=== PATIENT | female | born 1990 | race Caucasian/White ===

== ENCOUNTER 2023-06-28 17:48 | Emergency (ER) | payer OTHER, MEDICAID, SELFPAY ==
[2023-06-28 18:08] VITALS: BP 176/121; PULSE 116; RESP 18; TEMP 36.8; O2SAT 95; BMI 31.1
--- NOTE | 2023-06-28 20:26 | PC.NURSE ---
Patient told registration at 2006 that they were going to another hospital.
== END 2023-06-28 20:07 | disposition left against medical advice (07) ==
PROVIDERS: Emergency Provider Emergency Medicine
CPT/HCPCS: 99281

== ENCOUNTER 2023-08-24 23:15 | Emergency (ER) | payer OTHER, MEDICAID, SELFPAY ==
[2023-08-24 23:22] VITALS: PULSE 155; RESP 26; TEMP 36.3; O2SAT 98; BMI 31.8
--- NOTE | 2023-08-24 23:27 | DI.RAD.S_ITS ---
PROCEDURE: XR CHEST 1V INDICATIONS: Chest pain TECHNIQUE: One view of the chest was acquired. COMPARISON: None. FINDINGS: Surgical changes and devices: None. Lungs and pleura: Slightly diminished lung volumes. Streaky bibasilar opacities more pronounced on the left likely representing atelectasis. No dense consolidation. No pneumothorax or pleural effusion. Mediastinum: Mediastinal contours appear normal. Heart size is normal. Bones and chest wall: No suspicious bony lesions. Overlying soft tissues appear unremarkable. IMPRESSION: Decreased lung volumes with findings compatible with atelectasis of the bilateral lung bases. No dense consolidation. No acute cardiopulmonary abnormalities. Dictated by: Cuauhtemoc Alba M.D. on 08/25/2023 at 0:11 Approved by: Cuauhtemoc Alba M.D. on 08/25/2023 at 0:12
--- NOTE | 2023-08-24 23:28 | ED_ITS ---
HPI - Chest Pain General Chief Complaint: Chest Pain Stated Complaint: needs help Time Seen by Provider: 08/24/23 23:20 Source: patient Mode of arrival: Wheelchair History of Present Illness HPI narrative: 33-year-old female with history of amphetamine abuse presents for chest pain. History is limited as patient is screaming, thrashing on the bed, screaming ?help me! I need help! Unable to redirect patient or calm patient down. Patient then began to scream to myself and nursing staff that ?you all are a bunch of fucking morons when vitals are attempted. Related Data Home Medications Medication Instructions Recorded Confirmed acetaminophen 325 mg rectal ##0 05/07/17 04/08/21 suppository (Acephen) ibuprofen 200 mg tablet ##0 05/07/17 04/08/21 Allergies Allergy/AdvReac Type Severity Reaction Status Date / Time methocarbamol [METHOCARBAMOL] Allergy Unknown NUMB LIPS Verified 06/28/23 18:08 AND TONGUE Penicillins [PENICILLINS] Allergy Unknown Verified 06/28/23 18:08 Review of Systems Review of Systems Narrative: see HPI Patient History Social History Smoking Status: Current every day smoker Smoking Status: Current every day smoker tobacco type: cigarettes Substance Use Type: marijuana, IV drugs and methamphetamine Exam Initial Vital Signs Initial Vital Signs: Vital Signs Temperature 97.3 F L 08/24/23 23:22 Pulse Rate 155 H 08/24/23 23:22 Respiratory Rate 26 H 08/24/23 23:22 Pulse Oximetry 98 08/24/23 23:22 Oxygen Delivery Method Room Air 08/24/23 23:22 Const: Agitated, screaming, uncooperative Cardiac: Tachycardia, regular rhythm RESP: unlabored, screaming loudly at the top of her lungs Skin: Warm, Dry, intact, no rashes Neuro: CN II-XII grossly intact, moves all extremities Course Orders Ordered: Discontinued Medications Diphenhydramine HCl (Diphenhydramine 50 Mg/Ml Vial) 50 mg IM NOW ONE Stop: 08/24/23 23:44 Last Admin: 08/24/23 23:55 Dose: 50 mg Documented By: AB Droperidol (Droperidol 5 Mg/2 Ml Vial) 5 mg IM NOW ONE Stop: 08/24/23 23:23 Last Admin: 08/24/23 23:30 Dose: 5 mg Documented By: Sodium Chloride (Normal Saline 0.9%) 1,000 mls @ 1,000 mls/hr IV BOLUS ONE Stop: 08/25/23 01:06 Last Infusion: 08/25/23 01:09 Dose: Infused Documented By: Admin: 08/25/23 00:29 Dose: 1,000 mls/hr Documented By: Lorazepam (Lorazepam 2 Mg/Ml Inj) 2 mg IM NOW ONE Stop: 08/24/23 23:22 Last Admin: 08/24/23 23:30 Dose: 2 mg Documented By: Lorazepam (Lorazepam 2 Mg/Ml Inj) 2 mg IM NOW ONE Stop: 08/24/23 23:44 Last Admin: 08/24/23 23:55 Dose: 2 mg Documented By: Vital Signs Vital signs: Vital Signs - 8 hr 08/24/23 23:22 08/24/23 23:50 08/25/23 00:00 Temperature 97.3 F L Pulse Rate 155 H 144 H Respiratory Rate 26 H 29 H Blood Pressure 129/66 Pulse Oximetry 98 100 Oxygen Delivery Method Room Air Room Air 08/25/23 00:00 08/25/23 00:30 08/25/23 00:30 Temperature Pulse Rate 126 H 117 H Respiratory Rate 17 14 Blood Pressure 123/63 Pulse Oximetry 100 Oxygen Delivery Method 08/25/23 01:00 08/25/23 01:00 08/25/23 01:30 Temperature Pulse Rate 106 H Respiratory Rate 14 Blood Pressure 112/55 L 122/77 Pulse Oximetry 100 Oxygen Delivery Method 08/25/23 01:30 08/25/23 02:00 08/25/23 02:00 Temperature Pulse Rate 98 H 97 H Respiratory Rate 11 L 14 Blood Pressure 114/62 Pulse Oximetry 100 Oxygen Delivery Method Room Air 08/25/23 02:30 08/25/23 02:30 08/25/23 03:00 Temperature Pulse Rate 94 H 96 H Respiratory Rate 12 14 Blood Pressure 122/77 Pulse Oximetry 98 100 Oxygen Delivery Method 08/25/23 03:00 08/25/23 03:30 08/25/23 03:30 Temperature Pulse Rate 91 H Respiratory Rate 14 Blood Pressure 116/73 119/71 Pulse Oximetry 100 Oxygen Delivery Method 08/25/23 04:00 08/25/23 04:00 08/25/23 04:30 Temperature Pulse Rate 90 93 H Respiratory Rate 15 14 Blood Pressure 117/70 Pulse Oximetry 100 100 Oxygen Delivery Method 08/25/23 04:30 08/25/23 05:00 08/25/23 05:00 Temperature Pulse Rate 85 Respiratory Rate 12 Blood Pressure 113/67 116/73 Pulse Oximetry 100 Oxygen Delivery Method 08/25/23 05:30 08/25/23 05:30 Temperature Pulse Rate 92 H Respiratory Rate 15 Blood Pressure 119/77 Pulse Oximetry 100 Oxygen Delivery Method MDM - Chest Pain Differential Diagnosis Differential diagnosis: Likely fracture of rib, chest pain and biliary colic Lab Data 08/25/23 00:20 08/25/23 00:20 Labs: Lab Results 08/25/23 Range/Units 00:20 WBC 8.2 (4.5-11.0) X10^3/uL RBC 4.80 (4.0-5.2) X10^6/uL Hgb 12.9 (12.0-16.0) g/dL Hct 38.8 (36-46) % MCV 81.0 (80-100) fL MCH 27.0 (26-34) PG MCHC 33.3 (30-36) % RDW 14.5 (11.6-14.8) % Plt Count 410 H (150-400) X10^3/uL Neut % (Auto) 71.9 (50-75) % Lymph % (Auto) 19.2 L (25-40) % [place] % (Auto) 5.3 (3-14) % Eos % (Auto) 1.9 L (2-4) % Baso % (Auto) 1.7 (0-2) % Neut # (Auto) 5900 (2895-4852) /uL Lymph # (Auto) 1600 (8627-9241) /uL [place] # (Auto) 400 (0-900) /uL Eos # (Auto) 200 (0-450) /uL Baso # (Auto) 100 (0-100) /uL Sodium 139 (137-145) mmol/L Potassium 3.5 (3.4-5.1) mmol/L Chloride 106 (98-107) mmol/L Carbon Dioxide 27 (22-32) mmol/L BUN 16 (7-17) mg/dL Creatinine 0.94 (0.52-1.04) mg/dL Estimated GFR > 60 (>60) mL/min BUN/Creatinine Ratio 17.0 (6-22) Glucose 98 (70-100) mg/dL Calcium 9.5 (8.4-10.2) mg/dL Total Bilirubin 0.4 (0.2-1.3) mg/dL AST 23 (14-36) IU/L ALT 17 (<35) IU/L Alkaline Phosphatase 87 (38-126) U/L Total Creatine Kinase 94 (30-135) U/L Troponin I < 0.012 (0.01-0.034) ng/mL Total Protein 8.3 H (6.3-8.2) g/dL Albumin 4.7 (3.5-5.0) g/dL Globulin 3.6 (1.7-4.1) g/dL Albumin/Globulin Ratio 1.3 (1.0-2.8) ECG Data Interpretation: Sinus tachycardia at 113 beats per minute. Normal [place], no ST T wave changes, no STEMI MDM Narrative Medical decision making narrative: Patient presenting possibly for chest pain, history however is severely limited due to extreme patient agitation. She intermittently screams at her heart is going to explode and calls myself and ED staff morons for not helping, however refuses all attempts at interventions. Due to patient's extreme agitation and inability to redirect patient was given IM medications for sedation. Patient was sleeping comfortably in bed, vital signs have markedly improved now that patient was no longer agitated and screaming. EKG sinus tachycardia, laboratory work is negative for any acute abnormalities. Chest x-ray negative for acute findings. Will allow patient to sleep off sedation and will reassess. Patient was allowed to sleep in the exam room, vitals normalized and remained normal throughout her stay in the department. Upon waking patient stated her chest pain was no longer present and she felt better. Discharge Plan Departure Patient Disposition: Home Clinical Impression: Chest pain, Amphetamine abuse Instructions: DI for Chest Pain Activity Restrictions/Additional Instructions: Your laboratory work, EKG, and chest x-ray were normal today. Amphetamine abuse we will worsened chest pain and I highly recommend that you stop usage immediately. Prescriptions: No Action acetaminophen [Acephen] 325 MG suppository Qty: 0 ibuprofen 200 MG tablet Qty: 0 Referrals: Miscellaneous,Doctor, MD [Primary Care Provider] - Stand Alone Forms: Patient Portal/API
[2023-08-24] MEDS: DROPERIDOL 5 MG/2 ML VIAL IM (23:30)
[2023-08-24] MEDS: LORazepam 2 MG/ML INJ IM ×2 (23:30→23:55)
--- NOTE | 2023-08-24 23:45 | PC.NURSE ---
This Rn to bedside after the pt continues to scream for help. Pt screams obscenities at staff. It was attempted to explain to the pt what is going on. Pt screams over this RN when trying to talk with her and offer help. Pt states that this RN is a Fucking moron and to Get out of my face you are a moron. This RN stands by to offer help and is repeatedly verbally abused by the pt. This RN leaves the room as the pt stands up and opens the door to scream at this RN in the [place] then goes back into the room.
[2023-08-24 23:50] VITALS: PULSE 144; RESP 29; O2SAT 100
[2023-08-24] MEDS: diphenhydrAMINE 50 MG/ML VIAL IM (23:55)
[2023-08-25] VITALS (12 sets, daily range): BP systolic 112–129; BP diastolic 55–77; PULSE 85–126; RESP 11–17; O2SAT 98–100
[2023-08-25] MEDS: SODIUM CHLORIDE 0.9% 1,000 ML 1000 ML IV (00:29)
[2023-08-25 00:32] LABS: Add Manual Diff / Slide Review NO; Basophils Absolute Auto 100 /uL (0-100); Basophils Percent Auto 1.7 % (0-2); Eosinophils Absolute Auto 200 /uL (0-450); Eosinophils Percent Auto 1.9 % (2-4); Hematocrit 38.8 % (36-46); Hemoglobin 12.9 g/dL (12.0-16.0); Lymphocytes Absolute Auto 1600 /uL (1100-4500); Lymphocytes Percent Auto 19.2 % (25-40); Mean Corpuscular HGB Conc 33.3 % (30-36); Monocytes Absolute Auto 400 /uL (0-900); Monocytes Percent Auto 5.3 % (3-14); Neutrophils Absolute Auto 5900 /uL (1500-7000); Neutrophils Percent Auto 71.9 % (50-75); Platelet Count 410 X10^3/uL (150-400); Red Cell Distribution Width 14.5 % (11.6-14.8); White Blood Cell Count 8.2 X10^3/uL (4.5-11.0)
[2023-08-25 00:41] LABS: Alanine Aminotransferase 17 IU/L (<35); Albumin 4.7 g/dL (3.5-5.0); Albumin Globulin Ratio 1.3 (1.0-2.8); Alkaline Phosphatase 87 U/L (38-126); Aspartate Aminotransferase 23 IU/L (14-36); Bilirubin Total 0.4 mg/dL (0.2-1.3); Blood Urea Nitrogen 16 mg/dL (7-17); Calcium 9.5 mg/dL (8.4-10.2); Carbon Dioxide 27 mmol/L (22-32); Chloride 106 mmol/L (98-107); Creatine Kinase 94 U/L (30-135); Estimated Glomerular Filt Rate > 60 mL/min (>60); Globulin 3.6 g/dL (1.7-4.1); Glucose 98 mg/dL (70-100); HEMOLYSIS < 15 (0-50); Potassium 3.5 mmol/L (3.4-5.1); Sodium 139 mmol/L (137-145); Total Protein 8.3 g/dL (6.3-8.2)
[2023-08-25 00:52] LABS: Troponin I < 0.012 ng/mL (0.01-0.034)
== END 2023-08-25 06:17 | disposition home or self-care (01) ==
PROVIDERS: Emergency Provider Emergency Medicine
DX: R07.9 Chest pain, unspecified (principal); F15.10 Other stimulant abuse, uncomplicated
CPT/HCPCS: 36415; 71045; 80053; 82550; 84484; 85025; 93005; 96372; 99284; J1200; J1790; J2060